=== PATIENT | male | born 1995 | race Caucasian/White ===

== ENCOUNTER 2020-06-22 23:40 | Emergency (ER) | payer OTHER ==
[~2020-06-22] VITALS: Ht 167.6 cm; Wt 76.2 kg
[2020-06-23] MEDS ORDERED: CEPH500 PO (00:25)
[2020-06-23] MEDS ORDERED: Bactrim Ds Tab1 EACH PO (00:25)
== END 2020-06-23 00:45 | disposition home or self-care (01) ==
LOC: ER 23:40
DX: L05.01 Pilonidal cyst with abscess (principal)
CPT/HCPCS: 10081; 99282-25; A9270-GY